=== PATIENT | female | born 1960 | race Caucasian/White ===

== ENCOUNTER 2024-04-17 07:37 | Outpatient (CLI) | payer MEDICARE, MEDICAID, SELFPAY ==
--- NOTE | 2024-04-17 08:59 | W.ANESCHARGE ---
Anesthesia Charges Start Date/Time Anesthesia Start Date: 04/17/24 Anesthesia Start Time: 08:30 Stop Date/Time Anesthesia Stop Date: 04/17/24 Anesthesia Stop Time: 09:01
== END 2024-04-17 07:38 | disposition home or self-care (01) ==
LOC: OP CLINIC 07:40
PROVIDERS: PCP Surgery; Visit Provider Internal Medicine
DX: Z12.11 Encounter for screening for malignant neoplasm of colon (principal); K64.9 Unspecified hemorrhoids
CPT/HCPCS: 00812; 45378; J2704